=== PATIENT | female | born 1955 | race Native Hawaiian/Other Pacific Islander ===

== ENCOUNTER 2017-09-26 14:05 | Outpatient (CLI) | payer BC ==
[~2017-09-26 14:05] MED LIST: BACLOFEN10 MG PO; DDAVP0.1 MG PO; FIORICET 50-3001 CAP PO; HYDR5TAB9 PO; IBUPROFEN PO; [UNRECOGNIZED DRUG - OTHER] OR
== END 2017-09-26 19:06 | disposition home or self-care (01) ==
LOC: US 14:05
DX: M79.604 Pain in right leg (principal); R60.0 Localized edema

== ENCOUNTER 2019-11-26 14:06 | Outpatient (CLI) | payer OTHER, BC | END 2019-11-26 20:39 | disposition home or self-care (01) | LOC: LABW 14:06 | DX: R50.9 Fever, unspecified (principal) | CPT/HCPCS: 87502 ==

== ENCOUNTER 2020-09-17 05:03 | Emergency (ER) | payer OTHER, BC ==
[~2020-09-17] VITALS: Ht 157.5 cm; Wt 59.0 kg
[2020-09-17 06:00] VITALS: BP 142/48; TEMP 98.5
== END 2020-09-17 06:00 | disposition home or self-care (01) ==
LOC: ED 05:03
DX: G43.909 Migraine, unspecified, not intractable, without status migrainosus (principal)
CPT/HCPCS: 96374; 96375; 99283; J1200; J1885; J2405

== ENCOUNTER 2021-08-24 05:45 | Emergency (ER) | payer OTHER, BC ==
[~2021-08-24] VITALS: Ht 157.5 cm; Wt 66.7 kg
[2021-08-24 06:02] VITALS: BP 133/48; TEMP 98.1
[2021-08-24 06:54] LABS: PLATELET COUNT 310 K/uL (152-353)
[2021-08-24 07:00] LABS: POTASSIUM 4.1 mmol/L (3.6-5.2)
== END 2021-08-24 08:27 | disposition home or self-care (01) ==
LOC: ED 05:45
PROVIDERS: Emergency Medicine
DX: G43.909 Migraine, unspecified, not intractable, without status migrainosus (principal); R05.8 Other specified cough
CPT/HCPCS: 80048; 80307; 81000; 84484; 85027; 93005; 96374; 96375; 99284; J1170; J2405

== ENCOUNTER 2021-10-13 10:38 | Emergency (ER) | payer OTHER, BC ==
[~2021-10-13] VITALS: Ht 157.5 cm; Wt 63.5 kg
[2021-10-13 12:10] VITALS: BP 152/64; TEMP 98.5
== END 2021-10-13 12:10 | disposition home or self-care (01) ==
LOC: ED 10:38
DX: G43.909 Migraine, unspecified, not intractable, without status migrainosus (principal)
CPT/HCPCS: 96372; 99283; J1170; J2550

== ENCOUNTER 2021-11-09 08:07 | Emergency (ER) | payer OTHER, BC ==
[~2021-11-09] VITALS: Ht 157.5 cm; Wt 61.2 kg
[2021-11-09 08:13] VITALS: TEMP 97.2
[2021-11-09 09:11] VITALS: BP 122/68
== END 2021-11-09 09:13 | disposition home or self-care (01) ==
LOC: ED 08:07
DX: G43.909 Migraine, unspecified, not intractable, without status migrainosus (principal)
CPT/HCPCS: 96372; 99283; J1200; J1885; J2405